=== PATIENT | male | born 1985 | race Caucasian/White ===

== ENCOUNTER 2016-03-23 07:54 | Emergency (ER) | payer MEDICAID ==
[2016-03-23] MEDS ORDERED: NS 1,000 ML IV ONE (09:27)
[2016-03-23] MEDS ORDERED: ONDANSETRON 4 MG/2 ML VIAL IVP ONE (09:27)
--- NOTE | 2016-03-23 09:27 | EDPHY ---
H & P Time Seen by Provider: 03/23/16 09:11 HPI/ROS: Chief complaint. Abdominal pain HPI. 30-year-old male with history of intermittent chronic abdominal pain presents with exacerbation of his abdominal pain since yesterday. The patient was seen March 08 for same symptoms. He had a normal right upper quadrant ultrasound and normal lab work including lipase and liver function test. He was prescribed Zofran and ranitidine. He was referred to GI but his symptoms seem to be getting better with medication so he did not make a follow-up appointment. Yesterday he began have some bloating and increased upper abdominal pain. He vomited yesterday. Pain is described as crampy and sharp both sides upper abdomen. He had some dizziness and sweating this morning. He has no radiation to his back. No urinary symptoms. No fever. ROS Constitutional. no fever/chills, no weakness Eyes. no problems with vision ENT. no sore throat, no nasal drainage Cardiovascular. no chest pain Respiratory. no shortness of breath, no cough Abdominal. Upper abdominal pain with nausea and vomiting . no problems urinating MS. no calf pain/swelling, no neck/back pain, no joint pain Skin. no rash Lymph. no swollen glands Neuro. no headache, no dizziness, no difficulty walking or with speech Past Medical/Surgical History: Appendectomy and thyroglossal cyst removal Social History: , daily smoker, no alcohol Smoking Status: Current some day smoker Physical Exam: General Appearance: Alert well-developed male mild distress vital signs are stable Eyes: Pupils equal and round no pallor or injection. ENT, Mouth: Mucous membranes are moist. Respiratory: There are no retractions, lungs are clear to auscultation. Cardiovascular: Regular rate and rhythm. Gastrointestinal: Abdomen is soft with minimal tenderness in the right and left upper quadrants. There is no masses. No rebound. Normal bowel sounds Neurological: Awake and alert, sensory and motor exams grossly normal. Skin: Warm and dry, no rashes. Musculoskeletal: Neck is supple nontender. Extremities symmetrical, full range of motion. Psychiatric: Patient is oriented X 3, there is no agitation. Constitutional: Initial Vital Signs Temperature (C) 36.7 C 03/23/16 07:55 Heart Rate 65 03/23/16 07:55 Respiratory Rate 14 03/23/16 07:55 Blood Pressure 132/71 H 03/23/16 07:55 O2 Sat (%) 98 03/23/16 07:55 O2 Delivery Mode Room Air Allergies/Adverse Reactions: amoxicillin [Amoxicillin] Allergy (Verified 06/12/13 17:40) hydromorphone HCl [From Dilaudid] Allergy (Verified 06/12/13 17:40) Iodinated Contrast Media - Oral and [IV Dye, Iodine Containing Contrast ] Allergy (Verified 06/12/13 17:40) Home Medications: Medication Instructions Recorded Clindamycin [Clindamycin] 300 mg PO Q6 #40 cap 01/05/13 oxyCODONE/APAP 5/325 [Percocet 1 tab PO Q2-3PRN PRN #20 tab 01/05/13 5/325] Clindamycin HCl [Cleocin] 300 mg PO Q6 #40 capsule 06/12/13 oxyCODONE/APAP 5/325 [Percocet 1 tab PO Q6PRN PRN #14 tab 06/12/13 5/325] Hydrocodone/APAP 5/325 [[place] 1 tab PO Q4 #12 tab 10/02/15 5/325 (*)] Ondansetron Odt [Zofran Odt] 4 mg PO Q4PRN PRN #20 tab 03/08/16 Ranitidine HCl 150 mg PO BID #60 tablet 03/08/16 Ondansetron Odt [Zofran Odt] 4 mg PO Q4PRN PRN #4 tab 03/23/16 Ranitidine HCl 150 mg PO BID #60 tablet 03/23/16 oxyCODONE/APAP 5/325 [Percocet 1 tab PO Q4-6PRN PRN #14 tab 03/23/16 5/325] Medical Decision Making - Diagnostics Imaging: One-view upright abdomen shows no evidence of free air or air-fluid levels Procedures: IV normal saline with IV Pepcid, morphine, Zofran. ED Course/Re-evaluation: Patient is given a GI cocktail with good relief within 5 minutes. Re-evaluation at 10:25 a.m. patient is feeling much better. He stable The patient, his , and I discussed imaging and lab results. We discussed treatment plan including criteria for return importance of follow-up further evaluation. They expressed understanding and agreement Differential Diagnosis: I considered gastritis, peptic ulcer disease, pancreatitis - Data Points Laboratory Results: Laboratory Results 03/23/16 08:15 03/23/16 08:15 03/23/16 08:15 WBC 7.18 10^3/uL (3.80-9.50) RBC 5.28 10^6/uL (4.40-6.38) Hgb 17.0 g/dL (13.7-17.5) Hct 48.2 % (40.0-51.0) MCV 91.3 fL (81.5-99.8) MCH 32.2 pg (27.9-34.1) MCHC 35.3 g/dL (32.4-36.7) RDW 13.3 % (11.5-15.2) Plt Count 281 10^3/uL (150-400) MPV 10.2 fL (8.7-11.7) Neut % (Auto) 53.1 % (39.3-74.2) Lymph % (Auto) 36.2 % (15.0-45.0) [place] % (Auto) 7.0 % (4.5-13.0) Eos % (Auto) 2.8 % (0.6-7.6) Baso % (Auto) 0.6 % (0.3-1.7) Nucleat RBC Rel Count 0.0 % (0.0-0.2) Absolute Neuts (auto) 3.82 10^3/uL (1.70-6.50) Absolute Lymphs (auto) 2.60 10^3/uL (1.00-3.00) Absolute Monos (auto) 0.50 10^3/uL (0.30-0.80) Absolute Eos (auto) 0.20 10^3/uL (0.03-0.40) Absolute Basos (auto) 0.04 10^3/uL (0.02-0.10) Absolute Nucleated RBC 0.00 10^3/uL (0-0.01) Immature Gran % 0.3 % (0.0-1.1) Immature Gran # 0.02 10^3/uL (0.00-0.10) Sodium 142 mEq/L (134-144) Potassium 4.8 mEq/L (3.5-5.2) Chloride 104 mEq/L (97-110) Carbon Dioxide 24 mEq/l (22-31) Anion Gap 14 mEq/L (8-16) BUN 12 mg/dL (7-23) Creatinine 1.0 mg/dL (0.7-1.3) Estimated GFR > 60 Glucose 103 H mg/dL (70-100) Calcium 9.5 mg/dL (8.5-10.4) Lipase 154.0 IU/L (23-300) Medications Given: Discontinued Medications Sodium Chloride (Ns) 1,000 mls @ 0 mls/hr IV ONCE ONE PRN Reason: Wide Open Stop: 03/23/16 09:28 Last Admin: 03/23/16 09:46 Dose: 1,000 mls Famotidine/Sodium Chloride (Pepcid 20 Mg (Premix)) 50 mls @ 200 mls/hr IV EDNOW ONE Stop: 03/23/16 09:58 Last Admin: 03/23/16 09:50 Dose: 50 mls Miscellaneous Medication (Gi Cocktail) 55 ml PO EDNOW ONE Stop: 03/23/16 09:45 Last Admin: 03/23/16 10:15 Dose: 55 ml Morphine Sulfate (Morphine) 6 mg IVP EDNOW ONE Stop: 03/23/16 09:45 Last Admin: 03/23/16 09:50 Dose: 6 mg Ondansetron HCl (Zofran) 4 mg IVP EDNOW ONE Stop: 03/23/16 09:28 Last Admin: 03/23/16 09:46 Dose: 4 mg Departure - Departure Disposition: Home, Routine, Self-Care Clinical Impression: Gastritis Qualifiers: Gastritis type: unspecified gastritis Chronicity: acute Gastritis bleeding: without bleeding Qualifier Code: (K29.00) Acute gastritis without bleeding Condition: Good Instructions: Gastritis (ED) Additional Instructions: Ranitidine twice daily to help come your stomach. May also use Maalox 2 tbsp every 6 hours and especially at bedtime when you stomach will be empty all night. Percocet for pain. Zofran for nausea. Return for worsening symptoms. I think follow up with microchip specialist would be helpful. I will give you the name of microchip specialist. A follow-up with Dr. Cabrera if not improved in the next 2-3 days is also recommended Referrals: Brandon Cabrera MD [Primary Care Provider] - 2-3 days, if not improved Gleason,Vahe H, MD [Medical Doctor] - As per Instructions Prescriptions: oxyCODONE/APAP 5/325 [Percocet 5/325] 1 tab PO Q4-6PRN PRN #14 tab PRN Reason: Pain, Moderate Ranitidine HCl 150 mg PO BID #60 tablet Ondansetron Odt [Zofran Odt] 4 mg PO Q4PRN PRN #4 tab PRN Reason: Nausea/Vomiting, Use 1st
[2016-03-23 09:37] LABS: ANION GAP 14 mEq/L (8-16); CALCIUM 9.5 mg/dL (8.5-10.4); CARBON DIOXIDE 24 mEq/l (22-31); CHLORIDE 104 mEq/L (97-110); GLOMERULAR FILTRATION RATE > 60; GLUCOSE 103 mg/dL (70-100); POTASSIUM 4.8 mEq/L (3.5-5.2); SODIUM 142 mEq/L (134-144)
[2016-03-23] MEDS ORDERED: FAMOTIDINE 20 MG/NACL 50 ML IV ONE (09:44)
[2016-03-23] MEDS ORDERED: MAALOX/LIDO/HYOSC GI COCKTAIL 55 ML BOTTLE PO ONE (09:44)
[2016-03-23 09:46] LABS: % IMMATURE GRANULYOCYTES 0.3 % (0.0-1.1); ABSOLUTE IMMATURE GRANULOCYTES 0.02 10^3/uL (0.00-0.10); ADD DIFF? NO; ADD MORPH? NO; ADD SCAN? NO; ATYPICAL LYMPHOCYTE FLAG 10 (0-99); FRAGMENT RBC FLAG 0 (0-99); HEMATOCRIT 48.2 % (40.0-51.0); LEFT SHIFT FLG 0 (0-99); LIPEMIA HEMOLYSIS FLAG 90 (0-99); MEAN CELL HEMOGLOBIN 32.2 pg (27.9-34.1); MEAN CELL HEMOGLOBIN CONCENTR. 35.3 g/dL (32.4-36.7); MEAN CELL VOLUME 91.3 fL (81.5-99.8); MEAN PLATELET VOLUME 10.2 fL (8.7-11.7); PLATELET CLUMPS FLAG 10 (0-99); PLATELET COUNT 281 10^3/uL (150-400); RED BLOOD CELL COUNT 5.28 10^6/uL (4.40-6.38); RED CELL DISTRIBUTION WIDTH 13.3 % (11.5-15.2)
--- NOTE | 2016-03-23 10:10 | DX ---
Single View Abdomen 0930 hours History: Mid to upper abdominal pain. Findings: Upright view of the abdomen demonstrates scattered gas and stool in the colon without const ipation. Scattered gas in the small bowel without air-fluid levels. No pneumoperitoneum. Lung bases a re clear. No bowel distention. Bones are unremarkable. Impression: No bowel obstruction or pneumoperitoneum.
[2016-03-23 11:09] VITALS: BP 130/69; PULSE 74; RESP 18; TEMP 98.8; O2SAT 95
== END 2016-03-23 11:08 | disposition home or self-care (01) ==
LOC: EEVIPCON 07:54
DX: K29.00 Acute gastritis without bleeding (principal); F17.200 Nicotine dependence, unspecified, uncomplicated; Z90.49 Acquired absence of other specified parts of digestive tract
CPT/HCPCS: 96365; J2405